=== PATIENT | male | born 1970 | race Caucasian/White ===

== ENCOUNTER 2024-02-01 16:54 | Emergency (ER) | payer OTHER, SELFPAY ==
[2024-02-01 16:59] VITALS: BP 115/72; PULSE 74; RESP 18; TEMP 36.9; O2SAT 97; BMI 38.3
--- NOTE | 2024-02-01 17:27 | US_ITS ---
Patient: CHELA BEARDEN Facility:?[facility] Patient ID:?[id number] Site Patient ID:?[id number]. Site :?[id number] Study:?US-Abdomen RUQ-02/01/2024 6:23:37 PM Ordering Physician:?DR. VALENTIN ROCHA Final Report: INDICATION: Right upper quadrant pain. COMPARISON: None. TECHNIQUE: Real time roberson scale imaging and color Doppler analysis was performed of the right upper quadrant. FINDINGS: Liver: The liver is normal in size measuring 16.2 cm in length. Increased echogenicity compatible with hepatic steatosis. No focal liver lesions identified however portions of the right hepatic lobe were suboptimally visualized. Gallbladder: No stones or sludge. No wall thickening or pericholecystic fluid. Negative sonographic Adame sign. Bile ducts: The common bile duct measures 5 mm in diameter. Pancreas: Normal where seen. Right kidney: The right kidney measures 12.4 cm in length. No hydronephrosis. Vascular: Normal caliber proximal abdominal aorta. The main portal vein appears patent. IMPRESSION: 1. Hepatic steatosis. 2. Exam otherwise unremarkable. Dictated by Jessica Whalen MD @ 02/01/2024 6:36:46 PM Signed by:?Jessica Whalen MD @02/01/2024 6:36:46 PM (Electronic Signature)
--- NOTE | 2024-02-01 17:34 | ED_ITS ---
HPI - Abdominal Pain General Date Seen: 02/01/24 Chief Complaint: Abdominal Pain Stated Complaint: R lower abdomen-ref by UC Time Seen by Provider: 02/01/24 16:56 Source: patient and aerial photograph interpreter Mode of arrival: ambulatory Limitations: no limitations History of Present Illness HPI narrative: Patient is a 54-year-old male presenting to the emergency department for right upper quadrant abdominal pain. He states the pain started this morning and has continued throughout the day. Initially states the pain was a 10/10 he tried a 8 any says the pain got better throughout the day. It is now a 7/10. Does note this morning waiting some coughing ate some or rales I did make the pain worse. Throughout the few hours later Last ate at noon today and had a chicken meal. Is not currently nauseated states the pain is tolerable. Has never had pain like this before. No previous abdominal surgeries. Denies fevers, chills, chest pain, shortness of breath, headache, diarrhea, constipation, melena, hematochezia. Initially went to urgent care and was sent to our emergency department for evaluation. No other concerns noted Related Data Home Medications Medication Instructions Recorded Confirmed naproxen sodium 220 mg tablet 220 mg PO BID PRN 02/01/24 02/01/24 (Flanax (naproxen)) Previous Rx's Medication Instructions Recorded tamsulosin 0.4 mg capsule (Flomax) 0.4 mg PO DAILY #14 caps 02/01/24 Allergies Allergy/AdvReac Type Severity Reaction Status Date / Time No Known Drug Allergies Allergy Verified 02/01/24 17:08 [facility] Social History Smoking Status: Never smoker Do you use any of these nicotine containing products: None Second hand tobacco smoke exposure: No How often do you have a drink containing alcohol: never How often do you have six or more drinks on one occasion: Never AUDIT-C Alcohol total score: 0 Non-prescribed substance use: denies use service: No Exam Const: Vital Signs, click to edit/add: Vital Signs - 24 hr 02/01/24 16:59 Temperature 98.4 F Pulse Rate [Right Pulse Oximeter] 74 Respiratory Rate 18 Blood Pressure [Ri ght Upper Arm] 115/72 Pulse Oximetry 97 Oxygen Delivery Me thod Room Air Course Vital Signs Vital signs: Initial Vital Signs Temperature 98.4 F 02/01/24 16:59 Temperature Source Temporal Artery Scan 02/01/24 16:59 Pulse Rate 74 02/01/24 16:59 Pulse Rhythm Regular 02/01/24 16:59 Respiratory Rate 18 02/01/24 16:59 Blood Pressure 115/72 02/01/24 16:59 Blood Pressure Mean 86 02/01/24 16:59 Blood Pressure Position Sitting 02/01/24 16:59 Pulse Oximetry 97 02/01/24 16:59 Oxygen Delivery Method Room Air 02/01/24 16:59 Vital Signs Temperature 98.4 F 02/01/24 16:59 Pulse Rate 74 02/01/24 16:59 Respiratory Rate 18 02/01/24 16:59 Blood Pressure 115/72 02/01/24 16:59 Pulse Oximetry 97 02/01/24 16:59 Oxygen Delivery Method Room Air 02/01/24 16:59 Temperature 98.4 F 02/01/24 16:59 Pulse Rate 74 02/01/24 16:59 Respiratory Rate 18 02/01/24 16:59 Blood Pressure 115/72 02/01/24 16:59 Pulse Oximetry 97 02/01/24 16:59 Oxygen Delivery Method Room Air 02/01/24 16:59 MDM - Abdominal Pain MDM Narrative Medical decision making narrative: Patient is a 54-year-old male presenting for right upper quadrant pain. No previous abdominal surgeries in his does seem to be in the area of the gallbladder. Will do a right upper quadrant ultrasound. CBC and CMP ordered. Patient not requesting anything for pain or nausea at this time. CBC returned showing no concerning abnormalities. CMP shows slightly elevated AST and ALT with a normal alk-phos. His total bilirubin was elevated at 2 point only direct bilirubin was ordered. Return back at 0.2. This makes me think a direct gallbladder issue was causing these elevated LFTs. Right upper quadrant ultrasound showed no concerning findings other than some hepatic steatosis. This is likely the cause of his elevated liver enzymes. Since he still having pain and we do not know why will order CT scan with IV contrast of his abdomen and pelvis. That returned showing a 4 mm obstructing stone in the proximal right ureter with mild hydronephrosis. This seems the most likely cause of his symptoms. Urinalysis was done at urgent care which showed 2+ blood and 5-10 red blood cells. No white blood cells, leukocyte esterase, nitrates were seen and this seems unlikely to be an infected kidney stone. Patient does not currently have a primary care provider but he was provided resources to set up primary care. Will be discharged home with oxycodone and Toradol through instymeds along with tamsulosin. Patient is agreeable to this plan. Lab Data Labs: Lab Results 02/01/24 Range/Units 17:35 WBC 8.82 (4.50-11.00) K/uL RBC 5.02 (4.30-5.90) m/uL Hgb 15.7 (13.5-17.5) gm/dL Hct 44.8 (37.0-53.0) % MCV 89 (80-100) fL MCH 31 (26-34) pg MCHC 35 (32-36) gm/dL RDW Coeff of Garth 11.9 (11.5-15.5) % Plt Count 232 (140-440) K/uL Neut % (Auto) 63.9 (42.0-72.0) % Lymph % (Auto) 27.0 (20-44) % [place] % (Auto) 7.7 (0.0-11.0) % Eos % (Auto) 1.0 (0.0-7.0) % Baso % (Auto) 0.3 (0.0-3.0) % Neut # (Auto) 5.63 (1.7-7.0) K/uL Lymph # (Auto) 2.38 (0.90-2.90) K/uL [place] # (Auto) 0.70 (0.00-0.90) K/UL Eos # (Auto) 0.09 (0.00-0.50) K/uL Baso # (Auto) 0.03 (0.00-0.30) K/uL Abs Immat Gran (auto) 0.01 (0.00-0.30) K/uL Imm/Tot Granulo (auto) 0.1 % Sodium 139 (135-149) mmol/L Potassium 3.9 (3.6-5.1) mmol/L Chloride 109 (96-114) mmol/L Carbon Dioxide 21 (20-32) mmol/L Anion Gap 9 (7-15) mEq/L BUN 16 (7-30) mg/dL Creatinine 0.8 (0.5-1.5) mg/dL Estimated Creat Clear 90.76 Estimated GFR 105 ml/min Glucose 118 H (60-115) mg/dL Calcium 11.2 H (8.4-10.6) mg/dL Total Bilirubin 2.0 H (0.1-1.5) mg/dL Direct Bilirubin 0.2 (0.0-0.5) mg/dL AST 43 H (12-35) U/L ALT 56 H (4-50) U/L Alkaline Phosphatase 120 (40-150) U/L Total Protein 8.5 H (6.0-8.3) g/dL Albumin 4.6 (3.3-5.0) g/dL Lipase 96 (23-300) U/L Lab Acknowledgement Test Added Imaging Data US - abdomen: Attestation: I have reviewed the pertinent imaging results. Radiologist's impression: 1. Hepatic steatosis. 2. Exam otherwise unremarkable. Dictated by Jessica Whalen MD @ 02/01/2024 6:36:[address] scan abdomen and pelvis: Attestation: I have reviewed the pertinent imaging results. Radiologist's impression: 1. 4 mm obstructing stone in the proximal right ureter with mild right hydronephrosis and delayed nephrogram. 2. Diffuse hepatic steatosis. Please note that all CT scans at this facility use dose modulation, iterative reconstruction, and/or weight-based dosing when appropriate to reduce radiation dose to as low as reasonably achievable. Dictated by Jessica Whalen MD @ 02/01/2024 6:48:14 PM Discharge Plan Discharge Clinical Impression: Nephrolithiasis Patient Disposition: Home, Self-Care Condition: Stable Instructions: Kidney Stones (ED) Additional Instructions: Take Toradol for the pain. If that is not helping you can use the oxycodone. Make sure you take the tamsulosin daily. I gave the information to set up primary care follow-up. Informe them that you have fatty liver disease and an obstructing 4 mm kidney stone in that your told to follow-up with a primary care provider. Prescriptions: New tamsulosin [Flomax] 0.4 mg capsule 0.4 mg PO DAILY Qty: 14 2RF Rx Instructions: Refill the medication until you passed the stone No Action naproxen sodium [Flanax (naproxen)] 220 mg tablet 220 mg PO BID PRN Follow Up/Referrals: Provider,Not a Local [Primary Care Provider] - Stand Alone Forms: MyHealth Info Instructions
[2024-02-01 17:41] LABS: Basophils Absolute Auto 0.03 K/uL (0.00-0.30); Basophils Percent Auto 0.3 % (0.0-3.0); Eosinophils Absolute Auto 0.09 K/uL (0.00-0.50); Hematocrit 44.8 % (37.0-53.0); Hemoglobin* 15.7 gm/dL (13.5-17.5); Immature Granulocytes Abs Auto 0.01 K/uL (0.00-0.30); Immature Granulocytes Pct Auto 0.1 %; Lymphocytes Absolute Auto 2.38 K/uL (0.90-2.90); Mean Corpuscular HGB Conc 35 gm/dL (32-36); Mean Corpuscular Hemoglobin 31 pg (26-34); Mean Corpuscular Volume 89 fL (80-100); Monocytes Percent Auto 7.7 % (0.0-11.0); Neutrophils Absolute Auto 5.63 K/uL (1.7-7.0); Neutrophils Percent Auto 63.9 % (42.0-72.0); Platelet Count* 232 K/uL (140-440); RDW Coefficient of Variation % 11.9 % (11.5-15.5); Red Blood Count 5.02 m/uL (4.30-5.90); White Blood Count* 8.82 K/uL (4.50-11.00)
[2024-02-01 17:44] LABS: Slide Review Reflex No
[2024-02-01 17:54] LABS: Albumin* 4.6 g/dL (3.3-5.0)
[2024-02-01 17:55] LABS: Chloride* 109 mmol/L (96-114); Potassium* 3.9 mmol/L (3.6-5.1); Sodium* 139 mmol/L (135-149)
[2024-02-01 17:57] LABS: Alkaline Phosphatase* 120 U/L (40-150); Anion Gap 9 mEq/L (7-15); Aspartate Amino Transferase* 43 U/L (12-35); Blood Urea Nitrogen* 16 mg/dL (7-30); Carbon Dioxide* 21 mmol/L (20-32); Creatinine* 0.8 mg/dL (0.5-1.5); Est. Creatinine Clearance* 90.76; Estimated Glomerular Filt Rate 105 ml/min; Total Protein* 8.5 g/dL (6.0-8.3)
[2024-02-01 17:58] LABS: Alanine Aminotransferase* 56 U/L (4-50); Calcium* 11.2 mg/dL (8.4-10.6); Glucose* 118 mg/dL (60-115); Lipase* 96 U/L (23-300)
--- NOTE | 2024-02-01 18:12 | CT_ITS ---
Patient: CHELA BEARDEN Facility:?[facility] Patient ID:?[id number] Site Patient ID:?[id number]. Site :?[id number] Study:?CT-Abdomen/Pelvis W/ISOVUE 370 99CC-02/01/2024 6:28:15 PM Ordering Physician:ETHEL Final Report: INDICATION: Right-sided abdominal pain. TECHNIQUE: CT of the abdomen and pelvis acquired with 99 cc Isovue 370 IV contrast. Coronal and sagittal reconstructions. COMPARISON: Same day abdominal ultrasound. FINDINGS: Diffuse hepatic steatosis. The gallbladder, spleen, pancreas, and adrenal glands are negative. No biliary dilation. Hepatic and portal veins are patent. There is a 4 mm obstructing stone in the proximal right ureter with mild right hydronephrosis, delayed nephrogram, and slight perinephric fat stranding. Tiny nonobstructing right renal caliceal stone. Normal enhancement of the left kidney. No left hydronephrosis or ureteral dilation. No bladder wall thickening. Enlarged prostate gland. No small bowel dilation. Moderate amount of stool throughout the colon. Colonic diverticulosis without evidence of diverticulitis. Negative appendix. No intraperitoneal free air or fluid. No lymphadenopathy. Small fat containing umbilical and bilateral inguinal hernias. The lung bases are clear except for a calcified granuloma in the medial right lower lobe. Elevation of the right hemidiaphragm. The bones are unremarkable. IMPRESSION: 1. 4 mm obstructing stone in the proximal right ureter with mild right hydronephrosis and delayed nephrogram. 2. Diffuse hepatic steatosis. Please note that all CT scans at this facility use dose modulation, iterative reconstruction, and/or weight-based dosing when appropriate to reduce radiation dose to as low as reasonably achievable. Dictated by Jessica Whalen MD @ 02/01/2024 6:48:14 PM Signed by:?Jessica Whalen MD @02/01/2024 6:48:14 PM (Electronic Signature)
[2024-02-01 18:15] LABS: Bilirubin Direct* 0.2 mg/dL (0.0-0.5)
== END 2024-02-01 19:41 | disposition home or self-care (01) ==
PROVIDERS: Emergency Provider Student in an Organized Health Care Education/Training Program
DX: N20.0 Calculus of kidney (principal)
CPT/HCPCS: 36415; 74177; 76705; 80053; 82248; 83690; 85025; 87086; 99283; 99284; 99285; Q9967

== ENCOUNTER 2024-02-27 15:37 | Outpatient (CLI) | payer OTHER, SELFPAY | END 2024-02-27 15:38 | disposition home or self-care (01) | PROVIDERS: Visit Provider Internal Medicine | DX: E83.52 Hypercalcemia (principal); K76.0 Fatty (change of) liver, not elsewhere classified; Z12.5 Encounter for screening for malignant neoplasm of prostate | CPT/HCPCS: 80061; 82310; 83970; G0103 ==

== ENCOUNTER 2025-10-15 09:49 | Outpatient (CLI) | payer OTHER, SELFPAY | END 2025-10-15 09:50 | disposition home or self-care (01) | PROVIDERS: PCP Internal Medicine; Visit Provider Internal Medicine | DX: E83.52 Hypercalcemia (principal) | CPT/HCPCS: 80053; 82397; 83970; 84443 ==